=== PATIENT | male | born 1955 | race Caucasian/White ===

== ENCOUNTER → 2019-07-22 | Outpatient (CLI) | payer MEDICARE ==
--- NOTE | 2019-07-22 14:25 | US ---
EXAMINATION TYPE: US venous doppler duplex LE DATE OF EXAM: 07/22/2019 2:08 PM COMPARISON: US CLINICAL HISTORY: I82.409 deep vein thrombosis. Patient c/o left calf larger than right leg. SIDE PERFORMED: Bilateral TECHNIQUE: The lower extremity deep venous system is examined utilizing real time linear array sonog aarti with graded compression, doppler sonography and color-flow sonography. VESSELS IMAGED: Common Femoral Vein Deep Femoral Vein Greater Saphenous Vein * Femoral Vein: Dual Femora Vein is noted bilaterally Popliteal Vein Small Saphenous Vein * Proximal Calf Veins (* superficial vessels) Grayscale, color doppler, spectral doppler imaging performed of the deep veins of the lower extremiti es. There is normal flow, compressibility, vascular waveforms. Right Leg: Negative for DVT Left Leg: Negative for DVT IMPRESSION: No sonographic evidence of deep venous thrombosis within either the bilateral lower extr emities.
== END | disposition home or self-care (01) ==
LOC: RADUSWWP 13:33
PROVIDERS: ATTEND Family Medicine
DX: I82.403 Acute embolism and thrombosis of unspecified deep veins of lower extremity, bilateral (principal)
CPT/HCPCS: 93970

== ENCOUNTER 2019-08-04 00:39 | Emergency (ER) | payer MEDICARE ==
[2019-08-04 01:03] VITALS: BP 129/79; PULSE 97; RESP 18; TEMP 98.9
--- NOTE | 2019-08-04 01:54 | XR ---
EXAMINATION TYPE: XR knee complete RT DATE OF EXAM: 08/04/2019 COMPARISON: NONE HISTORY: Knee pain TECHNIQUE: 3 views FINDINGS: I see no fracture nor dislocation. There are small knee joint effusion. There is vascular c alcification. There is minimal calcification of the medial meniscus. IMPRESSION: No fracture. small knee joint effusion with chondrocalcinosis.
[2019-08-04] MEDS ORDERED: MORPHINE SULFATE 4 MG/ML SYRINGE IM STA (02:05)
[2019-08-04] MEDS ORDERED: ACET/COD 300 MG/30 MG STARTER PACK 6 TAB BTL PO STA (02:05)
[2019-08-04] MEDS ORDERED: KETOROLAC 30 MG/ML 1 ML VIAL IM STA (02:05)
--- NOTE | 2019-08-04 02:07 | ED ---
Lower Extremity Injury HPI - General Chief Complaint: Extremity Injury, Lower Stated Complaint: R Knee Pain Time Seen by Provider: 08/04/19 01:54 Source: patient Mode of arrival: wheelchair Limitations: physical limitation - History of Present Illness Initial Comments: 63-year-old male patient presents to the emergency department today for evaluation of right knee pain. Patient states that he was napping in a recliner for about 3 hours. Patient states when he went to move his right leg he felt something pop in his knee. At this time he had onset of excruciating pain. Patient states that he was unable to ambulate. Patient states that he shifted his leg and felt another pop in symptoms improved but he continued to have pain. Patient does report a history of chronic knee issues including a meniscus tear in the past with surgical repair. He denies any numbness or tingling to the leg. Denies taking anything for pain. Patient denies any recent rash, fever, chills, shortness breath, chest pain, abdominal pain, nausea, vomiting, diarrhea, constipation, back pain, numbness, tingling, dizziness, weakness, hematuria, dysuria, urinary urgency, urinary frequency, headache, visual changes, or any other complaints. - Related Data Allergies Allergy/AdvReac Type Severity Reaction Status Date / Time No Known Allergies Allergy Verified 08/04/19 01:03 Review of Systems ROS Statement: Those systems with pertinent positive or pertinent negative responses have been documented in the HPI. ROS Other: All systems not noted in ROS Statement are negative. Past Medical History Past Medical History: Diabetes Mellitus, Fibromyalgia, Hypertension Additional Past Medical History / Comment(s): pinched nerves in neck/back, History of Any Multi-Drug Resistant Organisms: None Reported Past Surgical History: Cholecystectomy Additional Past Surgical History / Comment(s): right meniscus, Past Psychological History: No Psychological Hx Reported Smoking Status: Never smoker Past Alcohol Use History: None Reported Past Drug Use History: None Reported General Exam Limitations: physical limitation General appearance: alert, in no apparent distress, other (This is a well- developed, well-nourished adult male patient in no acute distress. Vital signs upon presentation are temperature 98.9F, pulse 97, respirations 18, blood pressure 129/79, pulse ox 97% on room air.) Respiratory exam: Present: normal lung sounds bilaterally. Absent: respiratory distress, wheezes, rales, rhonchi, stridor Cardiovascular Exam: Present: regular rate, normal rhythm, normal heart sounds. Absent: systolic murmur, diastolic murmur, rubs, gallop, clicks Extremities exam: Present: normal inspection, full ROM, normal capillary refill, other (Skin to the right leg is pink, warm, dry. Cap refills less than 3 seconds. Pedal and posttibial pulses are 2+ and equal bilaterally. There is no swelling, erythema, warmth surrounding the right knee. Patient has full range of motion but with increased pain at full flexion.). Absent: tenderness, pedal edema, joint swelling, calf tenderness Neurological exam: Present: alert, oriented X3, CN II-XII intact Psychiatric exam: Present: normal affect, normal mood Skin exam: Present: warm, dry, intact, normal color. Absent: rash Course Vital Signs 08/04/19 00:59 Temperature 98.9 F Pulse Rate 97 Respiratory 18 Rate Blood Pressure 129/79 O2 Sat by Pulse 97 Oximetry Medical Decision Making - Medical Decision Making 63-year-old male patient presented to the emergency department today for evaluation of right knee pain. Physical examination did reveal a normal- appearing the with normal neurovascular status. X-ray did reveal small joint effusion with chondrocalcinosis. Patient did exhibit full range of motion. We will place patient in a knee immobilizer and discharged with a starter pack for Tylenol codeine. He is instructed to follow-up with talent sourcing specialist for further evaluation. Return parameters were discussed in detail. He verbalizes understanding and agrees with this plan. - Radiology Data Radiology results: report reviewed, image reviewed 3 views of the right knee are obtained. Report reviewed in its entirety. Impression by Dr. Ann shows no fracture. Small knee joint effusion with chondrocalcinosis. Disposition Clinical Impression: Right knee pain Disposition: HOME SELF-CARE Condition: Good Instructions (If sedation given, give patient instructions): Knee Sprain (ED), Knee Pain (ED) Additional Instructions: Take medication as directed. Apply ice to the knee. Rest. Use knee immobilizer while up ambulating. Follow-up with the talent sourcing specialist for further evaluation. Up with your primary care physician for recheck in 1-2 days. Return to the emergency department immediately for any new, worsening, or concerning symptoms. Is patient prescribed a controlled substance at d/c from ED?: No Referrals: Ifeanyi Rodríguez DO [Primary Care Provider] - 1-2 days Claude Mari MD [STAFF PHYSICIAN] - 1-2 days Time of Disposition: 02:07
== END 2019-08-04 02:40 | disposition home or self-care (01) ==
LOC: EC 00:39
DX: M25.561 Pain in right knee (principal); M11.261 Other chondrocalcinosis, right knee; M25.461 Effusion, right knee; Z87.39 Personal history of other diseases of the musculoskeletal system and connective tissue; Z98.890 Other specified postprocedural states
CPT/HCPCS: 99283; 96372 ×2; 73562; L1830; J2270; J1885